=== PATIENT | male | born 1980 | race Caucasian/White ===

== ENCOUNTER 2020-09-26 07:28 | Emergency (ER) | payer BC, OTHER ==
[~2020-09-26] VITALS: Ht 177.8 cm; Wt 86.2 kg
[2020-09-26 07:49] LABS: URINE BILIRUBIN NEGATIVE (Negative); URINE BLOOD NEGATIVE (Negative); URINE CLARITY CLEAR; URINE COLOR YELLOW; URINE GLUCOSE-RANDOM* NEGATIVE (Negative); URINE KETONES NEGATIVE (Negative); URINE LEUKOCYTES-REFLEX NEGATIVE (Negative); URINE NITRITE-REFLEX NEGATIVE (Negative); URINE PROTEIN (DIPSTICK) NEGATIVE (Negative); URINE UROBILINOGEN 0.2 E.U./dl (0.2-1.0)
[2020-09-26 10:17] VITALS: BP 136/76
[2020-09-26] MEDS ORDERED: DOXYCYCLINE 10100 MG PO (10:26)
== END 2020-09-26 10:44 | disposition home or self-care (01) ==
LOC: ER 07:28
PROVIDERS: Emergency Medicine
DX: N50.812 Left testicular pain (principal); Z88.0 Allergy status to penicillin